=== PATIENT | male | born 1945 | race Caucasian/White ===

== ENCOUNTER 2017-08-02 11:31 | Emergency (ER) | payer MEDICARE ==
[2017-08-02] MEDS ORDERED: Sodium Chloride 0.9% 1000 ML 1,000 ML IV STA (11:57)
[2017-08-02] MEDS ORDERED: Erythromycin 3.5 GM OPHTH. OP ONE (11:59)
[2017-08-02] MEDS ORDERED: Erythromycin 1 GM ONE (12:01)
[2017-08-02] MEDS ORDERED: Sodium Chloride 0.9% 1000 ML 1,000 ML ONE (12:02)
--- NOTE | 2017-08-02 12:07 | ERPHSYRPT ---
- History of Present Illness Time Seen by Provider: 08/02/17 11:50 Source: patient Exam Limitations: clinical condition Patient Subjective Stated Complaint: PT WAS AT LOCAL [employer]AS STATION ET FELL-DENIES PAIN-DENIES HITTING HEAD-DENIE LOC-REPORTS PAIN IN LUNGS THAT IS NORMAL FOR PT Triage Nursing Assessment: PT ARRIVED TO ED PER EMS-[facility] ET DRY-ABLE TO ANSWER QUESTIONS CORRECTLY-RESP NON LABORED-HARSH COUGH NOTED Physician History: PATIENT COMPLAINS OF SLIP AND FALL WHILE AT [employer], DENIES ASSOCIATED HEAD , NECK OR BACK INJURY. PATIENT COMPLAINS OF COUGH, DENIES DYSPNEA, CHIEST PAIN , DIFFICULTY BREATHING, NUMBNESS, TINGLING OR WEAKNESS OR TINGLING IN EXTREMITIES. Timing/Duration: day(s) Severity: mild Associated Symptoms: cough Allergies/Adverse Reactions: penicillin G Allergy (Intermediate, Verified 08/02/17 11:42) Hives Hx Tetanus, Diphtheria Vaccination/Date Given: No Hx Influenza Vaccination/Date Given: No Hx Pneumococcal Vaccination/Date Given: No Immunizations Up to Date: Yes - Review of Systems Constitutional: No Fever, No Chills Eyes: No Symptoms Ears, Nose, & Throat: No Symptoms Respiratory: Cough, No Dyspnea Cardiac: No Symptoms, No Chest Pain, No Edema, No Syncope Abdominal/Gastrointestinal: No Symptoms, No Abdominal Pain, No Nausea, No Vomiting, No Diarrhea Genitourinary Symptoms: No Symptoms, No Dysuria Musculoskeletal: No Symptoms, No Back Pain, No Neck Pain Skin: No Symptoms, No Rash Neurological: No Dizziness, No Focal Weakness, No Sensory Changes Psychological: No Symptoms Endocrine: No Symptoms All Other Systems: Reviewed and Negative - Past Medical History Pertinent Past Medical History: No - Past Surgical History Past Surgical History: No - Social History Smoking Status: Never smoker Exposure to second hand smoke: No Drug Use: none Patient Lives Alone: No - Nursing Vital Signs Nursing Vital Signs: Initial Vital Signs Temperature 9.8 F 08/02/17 11:41 Pulse Rate 108 H 08/02/17 11:41 Respiratory Rate 20 08/02/17 11:41 Blood Pressure 172/97 08/02/17 11:41 O2 Sat by Pulse Oximetry 98 08/02/17 11:41 Pain Scale Pain Intensity 0 - Physical Exam General Appearance: no apparent distress, alert Eye Exam: PERRL/EOMI, eyes nml inspection, other (MARKED CRUSTY EXUDATE OVER EYELASHES, CONJUNCTIVA WITH MARKED ERYTHEMA) Ears, Nose, Throat Exam: normal ENT inspection, TMs normal, pharynx normal, moist mucous membranes Neck Exam: normal inspection, non-tender, supple, full range of motion Respiratory Exam: normal breath sounds, lungs clear, other (INSPIRATORY BASILAR CRACKLES), No respiratory distress Cardiovascular Exam: regular rate/rhythm, normal heart sounds, normal peripheral pulses Gastrointestinal/Abdomen Exam: soft, normal bowel sounds, No tenderness, No mass Male Genitalia Exam: other (NONTENDER) Back Exam: normal inspection, normal range of motion, other (THERE IS NO THORACIC OR LUMBAR SPINAL OR PARASPINAL TENDERNESS), No CVA tenderness, No vertebral tenderness Extremity Exam: normal inspection, normal range of motion, pelvis stable Neurologic Exam: alert, oriented x 3, cooperative, normal mood/affect, nml cerebellar function, nml station & gait, sensation nml, No motor deficits Skin Exam: normal color, warm, dry, No rash Lymphatic Exam: No adenopathy SpO2 Interpretation: normal SpO2: 98 Oxygen Delivery: Room Air - Radiology Exams Chest X-ray Interpretation: Discussed w/ radiologist, No Infiltrates Ordered Tests: Active Orders 24 hr Category Date Time Status Clean Catch Urine Specimen STAT Care 08/02/17 11:57 Active Regular Diet Diet 08/02/17 Dinner Active CHEST 1 VIEW (PORTABLE) Stat Exams 08/02/17 13:10 Completed BLOOD CULTURE Stat Lab 08/02/17 12:17 Received BMP Stat Lab 08/02/17 11:45 Completed CBC W DIFF Stat Lab 08/02/17 11:45 Completed CULTURE,URINE Stat Lab 08/02/17 11:57 Received UA W/ MICROSCOPIC Stat Lab 08/02/17 11:57 Completed Respiratory Nebulizer STAT RT 08/02/17 12:12 Completed Medication Summary Discontinued Medications Generic Name Dose Route Start Last Admin Trade Name Jesseq PRN Reason Stop Dose Admin Acetaminophen 975 mg 08/02/17 14:01 08/02/17 14:10 Tylenol 325 Mg PO 08/02/17 14:02 975 mg STAT STA Administration Acetaminophen Confirm 08/02/17 14:09 Tylenol 325 Mg Administered 08/02/17 14:10 Dose 975 mg .ROUTE .STK-MED ONE Albuterol/Ipratropium 3 ml 08/02/17 12:12 08/02/17 12:45 Duoneb 0.5-3 Mg/3 Ml Neb IH 08/02/17 12:13 3 ml STAT ONE Administration Albuterol/Ipratropium Confirm 08/02/17 12:35 Duoneb 0.5-3 Mg/3 Ml Neb Administered 08/02/17 12:36 Dose 3 ml IH .STK-MED ONE Erythromycin 3.5 gm 08/02/17 11:59 08/02/17 12:42 Erythromycin 3.5 Gm Ophth. OP 08/02/17 12:00 3.5 gm STAT ONE Administration Erythromycin Confirm 08/02/17 12:01 Erythromycin 1 Gm Administered 08/02/17 12:02 Dose 1 gm .ROUTE .STK-MED ONE Sodium Chloride 1,000 mls @ 500 mls/hr 08/02/17 11:57 08/02/17 12:05 Sodium Chloride 0.9% 1000 Ml IV 08/02/17 13:56 500 mls/hr .Q2H STA Administration Sodium Chloride Confirm 08/02/17 12:02 Sodium Chloride 0.9% 1000 Ml Administered 08/02/17 12:03 Dose 1,000 mls @ ud .ROUTE .STK-MED ONE Levofloxacin/Dextrose 500 mg in 100 mls @ 100 mls/hr 08/02/17 13:12 08/02/17 13:21 Levofloxacin 500mg/100ml D5w IV 08/02/17 14:11 100 mls/hr STAT STA Administration Levofloxacin/Dextrose Confirm 08/02/17 13:20 Levofloxacin 500mg/100ml D5w Administered 08/02/17 13:21 Dose 500 mg in 100 mls @ ud IV .STK-MED ONE Lab/Rad Data: Laboratory Result Diagrams 08/02/17 11:45 08/02/17 11:45 Laboratory Results 08/02/17 08/02/17 08/02/17 Range/Units 12:10 11:57 11:45 WBC (4.0-10.5) K/mm3 RBC (4.1-5.6) M/mm3 Hgb (12.5-18.0) gm/dl Hct (42-50) % MCV (78-100) fl MCH (26-32) pg MCHC (32-36) g/dl RDW (11.5-14.0) % Plt Count (150-450) K/mm3 MPV (6-9.5) fl Gran % (36.0-66.0) % Lymphocytes % (24.0-44.0) % Monocytes % (0.0-12.0) % Eosinophils % (0.00-5.0) % Basophils % (0.0-0.4) % Basophils # (0-0.4) Sodium 139 (136-145) mEq/L Potassium 3.7 (3.5-5.1) mEq/L Chloride 102 (98-107) mEq/L Carbon Dioxide 24.9 (21-32) mEq/L Anion Gap 15.4 H (5-15) MEQ/L BUN 17 (9-20) mg/dL Creatinine 1.76 H (0.55-1.30) mg/dl Estimated GFR 41 ML/MIN Glucose 121 H (70-110) MG/DL Calcium 9.6 (8.5-10.1) mg/dL Ur Collection Type VOID Urine Color YELLOW (YELLOW) Urine Appearance HAZY (CLEAR) Urine pH 5.0 (5-6) Ur Specific Inlet 1.025 (1.005-1.025) Urine Protein 100 (Negative) Urine Ketones NEGATIVE (NEGATIVE) Urine Blood 250 (0-5) Stoney/ul Urine Nitrite NEGATIVE (NEGATIVE) Urine Bilirubin NEGATIVE (NEGATIVE) Urine Urobilinogen NORMAL (0-1) mg/dL Ur Leukocyte Esterase NEGATIVE (NEGATIVE) Urine Microscopic RBC 25-50 (0-2) /HPF Urine Microscopic WBC 0-2 (0-5) /HPF Ur Epithelial Cells RARE (FEW) /HPF Amorphous Crystals FEW (NEGATIVE) /HPF Urine Bacteria FEW (NEGATIVE) /HPF Urine Culture Reflexed YES (NO) Urine Glucose 100 (NEGATIVE) mg/dL Influenza Type A Ag POSITIVE (NEGATIVE) Influenza Type B Ag NEGATIVE (NEGATIVE) RSV (PCR) NEGATIVE (Negative) Specimen Received 08/02/17 1430 08/02/17 Range/Units 11:45 WBC 8.5 (4.0-10.5) K/mm3 RBC 5.40 (4.1-5.6) M/mm3 Hgb 16.1 (12.5-18.0) gm/dl Hct 47.5 (42-50) % MCV 88.0 (78-100) fl MCH 29.8 (26-32) pg MCHC 33.9 (32-36) g/dl RDW 14.0 (11.5-14.0) % Plt Count 171 (150-450) K/mm3 MPV 10.3 H (6-9.5) fl Gran % 76.5 H (36.0-66.0) % Lymphocytes % 10.2 L (24.0-44.0) % Monocytes % 12.3 H (0.0-12.0) % Eosinophils % 0.6 (0.00-5.0) % Basophils % 0.4 (0.0-0.4) % Basophils # 0.03 (0-0.4) Sodium (136-145) mEq/L Potassium (3.5-5.1) mEq/L Chloride (98-107) mEq/L Carbon Dioxide (21-32) mEq/L Anion Gap (5-15) MEQ/L BUN (9-20) mg/dL Creatinine (0.55-1.30) mg/dl Estimated GFR ML/MIN Glucose (70-110) MG/DL Calcium (8.5-10.1) mg/dL Ur Collection Type Urine Color (YELLOW) Urine Appearance (CLEAR) Urine pH (5-6) Ur Specific Inlet (1.005-1.025) Urine Protein (Negative) Urine Ketones (NEGATIVE) Urine Blood (0-5) Stoney/ul Urine Nitrite (NEGATIVE) Urine Bilirubin (NEGATIVE) Urine Urobilinogen (0-1) mg/dL Ur Leukocyte Esterase (NEGATIVE) Urine Microscopic RBC (0-2) /HPF Urine Microscopic WBC (0-5) /HPF Ur Epithelial Cells (FEW) /HPF Amorphous Crystals (NEGATIVE) /HPF Urine Bacteria (NEGATIVE) /HPF Urine Culture Reflexed (NO) Urine Glucose (NEGATIVE) mg/dL Influenza Type A Ag (NEGATIVE) Influenza Type B Ag (NEGATIVE) RSV (PCR) (Negative) Specimen Received - Progress Progress Note: 08/02/17 12:07 ADMINISTERED IV NORMAL SALINE 500ML/HR X 2, APPLICATION OF ERYTHROMYCIN OPHTHALMIC OINT TO BOTH EYES, ADMINISTERED LEVAQUIN 500MG IVPB 08/02/17 15:35 Counseled pt/family regarding: lab results, diagnosis, need for follow-up - Departure Time of Disposition: 15:40 Departure Disposition: Home Clinical Impression: ACUTE BRONCHITIS, INFLUNZA A Condition: Stable Critical Care Time: No Referrals: AUBRIE IZAGUIRRE MD [Primary Care Provider] - Additional Instructions: ANTIBIOTIC ZITHROMAX 250MG, TAKE 2 TABLETS DAY 1 FOLLOWED BY 1 TABLET DAILY FOR 4 DAYS. TAMIFLU 75MG TWICE DAILY FOR 5 DAYS. ALTERNATE MOTRIN EVERY OTHER 4 HOURS WITH TYLENOL FOR FEVER OR CHILLS. CONSULT YOUR PRIMARY CARE PROVIDER FOR FOLLOWUP IN 1 WEEK. Prescriptions: Azithromycin 250 mg [Zithromax 250 MG TABLET] 250 mg PO ZPACK #6 tablet Oseltamivir 75 mg [Tamiflu 75MG Capsule] 75 mg PO BID #10 cap
[2017-08-02] MEDS ORDERED: DUONEB 0.5-3 MG/3 ml Neb IH ONE ×2 (12:12→12:35)
[2017-08-02 12:36] LABS: BASOPHIL % 0.4 % (0.0-0.4); Basophil (Absolute #) 0.03 (0-0.4); Eosinophil % 0.6 % (0.00-5.0); Eosinophil (Absolute #) 0.05 (0-0.5); Granulocyte Absolute (ANC) 6.52 (1.4-6.9); Granulocytes % 76.5 % (36.0-66.0); Hematocrit 47.5 % (42-50); Hemoglobin 16.1 gm/dl (12.5-18.0); Lymphocyte (Absolute #) 0.87 (1.0-4.6); Lymphocytes % 10.2 % (24.0-44.0); Mean Corpuscular Hemoglobin 29.8 pg (26-32); Mean Corpuscular Hgb Concent. 33.9 g/dl (32-36); Mean Platelet Volume 10.3 fl (6-9.5); Monocyte (Absolute #) 1.05 (0.0-1.3); Monocytes % 12.3 % (0.0-12.0); Platelet Count 171 K/mm3 (150-450); White Blood Count 8.5 K/mm3 (4.0-10.5)
[2017-08-02 12:55] LABS: ANION GAP 15.4 MEQ/L (5-15); Calcium 9.6 mg/dL (8.5-10.1); Carbon Dioxide 24.9 mEq/L (21-32); Creatinine 1 1.76 mg/dl (0.55-1.30); Potassium 3.7 mEq/L (3.5-5.1)
[2017-08-02] MEDS ORDERED: Levofloxacin 500MG/100ML D5W 500 MG/100 ML BAG IV STA (13:12)
[2017-08-02 13:14] LABS: INFLUENZA A POSITIVE (NEGATIVE); INFLUENZA B NEGATIVE (NEGATIVE); RESPIRATORY SYNCTIAL VIRUS NEGATIVE (Negative)
[2017-08-02] MEDS ORDERED: Levofloxacin 500MG/100ML D5W 500 MG/100 ML BAG IV ONE (13:20)
--- NOTE | 2017-08-02 13:40 | XRAY ---
Indication: Cough. Comparison: June 28, 2011. Portable chest again demonstrates normal heart and lungs. Bony thorax intact. No new/acute findings.
[2017-08-02 13:55] VITALS: PULSE 120
[2017-08-02] MEDS ORDERED: TYLENOL 325 MG PO STA (14:01)
[2017-08-02] MEDS ORDERED: TYLENOL 325 MG ONE (14:09)
[2017-08-02 14:42] LABS: Appearance HAZY (CLEAR); Bilirubin NEGATIVE (NEGATIVE); Blood 250 Ery/ul (0-5); Glucose 100 mg/dL (NEGATIVE); Ketones NEGATIVE (NEGATIVE); Leukocyte Esterase NEGATIVE (NEGATIVE); Nitrite NEGATIVE (NEGATIVE); Protein,Urine Dip 100 (Negative); Specific Gravity 1.025 (1.005-1.025); Urobilinogen NORMAL mg/dL (0-1)
[2017-08-02 14:44] VITALS: BP 142/84
[2017-08-02 14:46] LABS: Amourphous Crystal FEW /HPF (NEGATIVE); Bacteria FEW /HPF (NEGATIVE); Epithelial Cells RARE /HPF (FEW); WBC 0-2 /HPF (0-5)
[2017-08-02 15:40] VITALS: O2SAT 98
== END 2017-08-02 16:11 | disposition home or self-care (01) ==
LOC: ED 11:31
DX: J20.9 Acute bronchitis, unspecified (principal); J10.1 Influenza due to other identified influenza virus with other respiratory manifestations; W01.0XXA Fall on same level from slipping, tripping and stumbling without subsequent striking against object, initial encounter; Y93.89 Activity, other specified; Y92.524 Gas station as the place of occurrence of the external cause
CPT/HCPCS: 36000; 36415; 71045; 80048; 81000; 85025; 87040; 87086; 87631; 94150; 94640; 96360; 96361; 96365; 99284; J1956; A9270-GY